=== PATIENT | female | born 1965 ===

== ENCOUNTER → 2021-07-22 08:00 | Outpatient (CLI) | payer OTHER ==
[~2021-07-22 08:00] MED LIST: DIURETIC; ENDOMETRIN100 MG VG; KELP150 MC1; MULTI-VITAMIN1 EACH PO; OMEGA 3 1,0001 EACH; VITAMIN B122500 MC1; VITAMIN C100 MG PO; VITAMIN D310 MC4
== END | disposition home or self-care (01) ==
LOC: LAB 08:00 → ADM 10:30 → CIR.AMB 07-27 10:30 → EDSTATUS 07-27 10:30
PROVIDERS: ATTEND Surgery Surgery of the Hand
DX: D21.12 Benign neoplasm of connective and other soft tissue of left upper limb, including shoulder (principal); Z20.828 Contact with and (suspected) exposure to other viral communicable diseases; Z20.818 Contact with and (suspected) exposure to other bacterial communicable diseases